=== PATIENT | male | born 1965 | race Caucasian/White ===

== ENCOUNTER 2025-11-17 22:34 | Emergency (ER) | payer BC, MEDICARE ==
[~2025-11-17] VITALS: Ht 182.9 cm; Wt 78.0 kg
[~2025-11-17 22:34] MED LIST: ARIP15TA2 MT; CLON0.2T PO; DULO30CA52 MT; HYDR4TAB4 PO; LORA-250 MT; METO-396 PO; ONDA-239 PO; PROT40 MT; QUET50TA MT; ROSU40TA MT; TRAZ-252 PO
[2025-11-17 22:38] VITALS: O2SAT 99
[2025-11-17] MEDS: ONDANSETRON HCL 4MG/2ML INJ IV ONE (23:00)
[2025-11-17] MEDS ORDERED: HYDR4TAB56 MT (23:18)
[2025-11-17] MEDS ORDERED: NALO4SPR BOTHNSTRLS (23:21)
[2025-11-17] MEDS: HYDROMORPHONE HCL 2MG TABLET PO ONE (23:52)
[2025-11-18 01:24] VITALS: BP 129/80; PULSE 61; RESP 18; TEMP 37.1; O2SAT 99
== END 2025-11-18 01:25 | disposition home or self-care (01) ==
LOC: ER 22:34
DX: Z76.0 Encounter for issue of repeat prescription (principal); Z79.899 Other long term (current) drug therapy; Z88.5 Allergy status to narcotic agent; Z98.84 Bariatric surgery status
CPT/HCPCS: 99283; J2405